=== PATIENT | female | born 2000 | race American Indian/Alaskan Native ===

== ENCOUNTER 2023-03-19 04:09 | Day surgery (SDC) | payer OTHER ==
[2023-03-13 17:05] VITALS: BMI 36.1
[2023-03-19] MEDS ORDERED: PROPOFOL 40 ML ONE (10:14)
[2023-03-19] MEDS ORDERED: MIDAZOLAM HCL 2 MG/2 ML SINGLE DOSE VIAL ONE (10:14)
[2023-03-19] MEDS ORDERED: PROMETHAZINE HCL 25 MG/1 ML VIAL IVPB PRN (12:23)
[2023-03-19] MEDS ORDERED: ACETAMINOPHEN 1000 MG/100 ML BAG IVPB ONE ×2 (12:23→12:30)
[2023-03-19] MEDS ORDERED: oxyCODONE HCL 5 MG TABLET PO PRN (12:23)
[2023-03-19] MEDS ORDERED: ONDANSETRON 4 MG/2 ML VIAL IVPUSH PRN (12:23)
[2023-03-19] MEDS ORDERED: ACETAMINOPHEN INJECTION 100 ML IVPB ONE (12:26)
[2023-03-19] MEDS ORDERED: LACTATED RINGERS SOLUTION 1,000 ML IV SCH (12:30)
[2023-03-19] MEDS ORDERED: oxyCODONE HCL 5 MG TABLET ONE (14:55)
[2023-03-19 16:59] VITALS: PULSE 92
[2023-03-19 17:01] VITALS: BP 122/74; RESP 20; TEMP 97.6
== END 2023-03-19 14:20 | disposition home or self-care (01) ==
LOC: JASU-SURG 04:09
PROVIDERS: ATTEND Otolaryngology
PROC: 0CTQ0ZZ Resection of Adenoids, Open Approach (ICD-10-PCS; 2023-03-19)
PROC: 0CTPXZZ Resection of Tonsils, External Approach (ICD-10-PCS; principal; 2023-03-19 11:30)
DX: J35.03 Chronic tonsillitis and adenoiditis (principal)
CPT/HCPCS: 81025; 94760